=== PATIENT | male | born 1995 | race Caucasian/White ===

== ENCOUNTER 2023-08-22 14:05 | Emergency (ER) | payer MEDICAID ==
[~2023-08-22] VITALS: Ht 170.2 cm; Wt 61.4 kg
[2023-08-22 14:15] VITALS: BP 111/66; PULSE 55; RESP 18; TEMP 98.7
== END 2023-08-22 16:47 | disposition still patient (30) ==
LOC: EMS 14:07
DX: G89.29 Other chronic pain (principal); K08.89 Other specified disorders of teeth and supporting structures; Z53.21 Procedure and treatment not carried out due to patient leaving prior to being seen by health care provider
CPT/HCPCS: 99281; Z7502